=== PATIENT | male | born 1955 | race Caucasian/White ===

== ENCOUNTER 2022-04-15 10:49 | Emergency (ER) | payer OTHER ==
[2022-04-15] MEDS ORDERED: GABAPENTIN 300 MG CAP ONE (11:15)
[2022-04-15] MEDS ORDERED: MORPHINE 4 MG/ML SYR ONE (11:15)
[2022-04-15] MEDS ORDERED: NA CHLORIDE 0.9% 1,000 ML ONE (11:28)
[2022-04-15 11:39] LABS: Absolute Lymphocytes (CBC) 1.8 K/uL (0.7-4.9); Hematocrit 48.4 % (39.6-49.0); Lymphocytes % 28.4 % (15.3-44.8); MPV 9.6 fL (7.6-11.3); RBC Red Blood Cell Count 4.97 M/uL (4.33-5.43)
[2022-04-15 11:48] LABS: Protime INR 1.06
[2022-04-15 11:52] LABS: Potassium 3.4 mmol/L (3.5-5.1)
--- NOTE | 2022-04-15 12:00 | ER ---
Nurse's Notes [facility] Name: Solo Barreto Age: 67 yrs Sex: Male : 1955 Arrival Date: 04/15/2022 Time: 10:51 Bed 24 Private MD: Diagnosis: Atherosclerosis of [place] arteries of extremities with intermittent claudication, left leg Presentation: 04/15 11:01 Chief complaint: Patient states: Left leg pain x 1 week, out of home medication of jl7 gabapentin and Xarelto x 1 week, denies N/V/D, denies CP, denies fever. Coronavirus screen: At this time, the client does not indicate any symptoms associated with coronavirus-19. Ebola Screen: No symptoms or risks identified at this time. Initial Sepsis Screen: Does the patient meet any 2 criteria? No. Patient's initial sepsis screen is negative. Does the patient have a suspected source of infection? No. Patient's initial sepsis screen is negative. Risk Assessment: Do you want to hurt yourself or someone else? Patient reports no desire to harm self or others. Onset of symptoms was April 08, 2022. Care prior to arrival: Glucose check: 101. 11:01 Method Of Arrival: EMS: [facility] 11:01 Acuity: NIKOLAI 3 jl7 Triage Assessment: 11:04 General: Appears in no apparent distress. uncomfortable, Behavior is cooperative, jl7 anxious, fussy. Pain: Complains of pain in left foot Pain radiates to left knee Pain currently is 8 out of 10 on a pain scale. Pain began x 1 week Is continuous. Neuro: Sandoval Agitation-Sedation Scale (RASS): +1 Restless Level of Consciousness is awake, alert, obeys commands, Oriented to person, place, time, situation. Cardiovascular: Patient's skin is warm and dry. Rhythm is sinus bradycardia Chest pain is denied. Respiratory: Airway is patent Respiratory effort is even, unlabored, Respiratory pattern is regular, symmetrical, Denies shortness of breath. GI: Patient currently denies diarrhea, nausea, vomiting. : No signs and/or symptoms were reported regarding the genitourinary system. Derm: Skin is pink, warm \T\ dry. Historical: - Allergies: 11:04 Codeine; jl7 - Home Meds: 11:04 gabapentin 300 mg oral cap 1 cap 3 times per day [Active]; Xarelto oral [Active]; jl7 - PMHx: 11:04 Peripheral artery disease; Hypertensive disorder; Myocardial infarction; jl7 - Immunization history:: Client reports having NOT received the Covid vaccine. - Social history:: Smoking status: Patient reports the use of cigarette tobacco products, smokes one pack cigarettes per day. - Family history:: not pertinent. - Hospitalizations: : No recent hospitalization is reported. Screenin:49 Abuse screen: Denies threats or abuse. Denies injuries from another. Nutritional jl7 screening: No deficits noted. Tuberculosis screening: No symptoms or risk factors identified. Fall Risk IV access (20 points). Total Merchant Fall Scale indicates No Risk (0-24 pts). Assessment: 11:00 General: See triage assessment. jl7 11:20 Reassessment: US at bedside. jl7 12:30 Reassessment: Patient appears in no apparent distress at this time. Patient and/or jl7 family updated on plan of care and expected duration. Pain level reassessed. Patient is alert, oriented x 3, equal unlabored respirations, skin warm/dry/pink. Patient states feeling better. Vital Signs: 11:01 BP 101 / 77; Pulse 68; Resp 15; Temp 98.1; Pulse Ox 96% on R/A; Weight 65.77 kg; Height jl7 5 ft. 4 in. (162.56 cm); Pain 8/10; 11:49 BP 100 / 74; Pulse 52; Resp 15; Pulse Ox 96% ; jl7 12:30 BP 105 / 74; Pulse 53; Resp 15; Pulse Ox 97% ; jl7 11:01 Body Mass Index 24.89 (65.77 kg, 162.56 cm) jl7 ED Course: 10:51 Patient arrived in ED. rn 10:51 Gaetano Addison MD is Attending Physician. rn 11:00 Atiya Melendrez RN is Primary Nurse. jl7 11:00 Patient has correct armband on for positive identification. Placed in gown. Bed in low jl7 position. Call light in reach. Side rails up X2. Client placed on continuous cardiac and pulse oximetry monitoring. NIBP monitoring applied. Warm blanket given. 11:03 Triage completed. jl7 11:04 Arm band placed on right wrist. jl7 11:15 Lower Extremity Artery Uni Ltd US In Process Unspecified. EDMS 11:30 Initial lab(s) drawn, by me, sent to lab. Inserted saline lock: 20 gauge in right jl7 antecubital area, using aseptic technique. Blood collected. 12:41 No provider procedures requiring assistance completed. IV discontinued, intact, jl7 bleeding controlled, No redness/swelling at site. Pressure dressing applied. Administered Medications: 11:21 CANCELLED (Duplicate Order): Lyrica (pregabalin) 100 mg PO once rn 11:30 Drug: Gabapentin 300 mg Route: PO; jl7 12:30 Follow up: Response: No adverse reaction; Pain is decreased jl7 11:30 Drug: NS 0.9% 1000 ml Route: IV; Rate: 1000 ml; Site: right antecubital; jl7 12:30 Follow up: Response: No adverse reaction; IV Status: Completed infusion; IV Intake: jl7 300ml 11:54 Not Given (Duplicate Order): morphine 4 mg IVP once over 4 mins rn 12:39 Not Given (Other Intervention Used): fentaNYL (PF) 25 mcg IVP once jl7 Medication: 12:30 VIS not applicable for this client. jl7 Intake: 12:30 IV: 300ml; Total: 300ml. jl7 Outcome: 12:00 Discharge ordered by . rn 12:41 Discharged to home ambulatory. jl7 12:41 Condition: stable 12:41 Discharge instructions given to patient, Instructed on discharge instructions, follow up and referral plans. medication usage, Demonstrated understanding of instructions, follow-up care, medications, Prescriptions given X 2. 12:47 Patient left the ED. jl7 Signatures: Dispatcher [employer] EDKY Gaetano Addison MD MD rn Leal, Jahala, RN RN jl7
--- NOTE | 2022-04-15 12:00 | EDPHYS ---
Physician Documentation [facility] Name: Solo Barreto Age: 67 yrs Sex: Male : 1955 Arrival Date: 04/15/2022 Time: 10:51 Bed 24 Private MD: ED Physician Gaetano Addison HPI: 04/15 11:48 This 67 yrs old Male presents to ER via EMS with complaints of Leg Pain. rn 11:48 The patient presents with pain, that is chronic. The complaints affect the anterior rn aspect of left ankle and dorsum of left foot. Onset: The symptoms/episode began/occurred "years ago". Modifying factors: The symptoms are alleviated by nothing. the symptoms are aggravated by movement. Associated signs and symptoms: Pertinent negatives fever, rash, swelling, weakness. Severity of symptoms: At their worst the symptoms were moderate, in the emergency department the symptoms are unchanged. The patient has experienced similar episodes in the past. Reports known PAD, bypass > 10 years ago, reports ran out of pain meds/xarelto/gabapentin recently and now having increased leg pain. No trauma. NO rash. . Historical: - Allergies: 11:04 Codeine; jl7 - Home Meds: 11:04 gabapentin 300 mg oral cap 1 cap 3 times per day [Active]; Xarelto oral [Active]; jl7 - PMHx: 11:04 Peripheral artery disease; Hypertensive disorder; Myocardial infarction; jl7 - Immunization history:: Client reports having NOT received the Covid vaccine. - Social history:: Smoking status: Patient reports the use of cigarette tobacco products, smokes one pack cigarettes per day. - Family history:: not pertinent. - Hospitalizations: : No recent hospitalization is reported. ROS: 11:48 Constitutional: Negative for fever, chills, and weight loss, Eyes: Negative for injury, rn pain, redness, and discharge, Cardiovascular: Negative for chest pain, palpitations, and edema, Respiratory: Negative for shortness of breath, cough, wheezing, and pleuritic chest pain, Abdomen/GI: Negative for abdominal pain, nausea, vomiting, diarrhea, and constipation, MS/Extremity: + left leg pain Skin: Negative for injury, rash, and discoloration, Neuro: Negative for headache, weakness, numbness, tingling, and seizure. Exam: 11:48 Constitutional: This is a well developed, well nourished patient who is awake, alert, rn and in no acute distress. Cardiovascular: Regular rate and rhythm. No pulse deficits. Respiratory: No increased work of breathing, no retractions or nasal flaring. Abdomen/GI: Soft, non-tender Skin: Warm, dry with normal turgor. Normal color with no rashes, no lesions, and no evidence of cellulitis. MS/ Extremity: Diminished pulse left foot but present, no cyanosis Neuro: Awake and alert, GCS 15, oriented to person, place, time, and situation. Cranial nerves II-XII grossly intact. Motor strength 5/5 in all extremities. Sensory grossly intact. Cerebellar exam normal. Normal gait. Vital Signs: 11:01 BP 101 / 77; Pulse 68; Resp 15; Temp 98.1; Pulse Ox 96% on R/A; Weight 65.77 kg; Height jl7 5 ft. 4 in. (162.56 cm); Pain 8/10; 11:49 BP 100 / 74; Pulse 52; Resp 15; Pulse Ox 96% ; jl7 12:30 BP 105 / 74; Pulse 53; Resp 15; Pulse Ox 97% ; jl7 11:01 Body Mass Index 24.89 (65.77 kg, 162.56 cm) jl7 MDM: 10:51 Patient medically screened. rn 11:57 Differential diagnosis: PAD, arterial occlusion, rest pain, claudication. Data rn reviewed: vital signs, nurses notes, lab test result(s), radiologic studies, ultrasound, and as a result, I will discharge patient. Counseling: I had a detailed discussion with the patient and/or guardian regarding: the historical points, exam findings, and any diagnostic results supporting the discharge/admit diagnosis, lab results, radiology results, the need for outpatient follow up, to return to the emergency department if symptoms worsen or persist or if there are any questions or concerns that arise at home. Response to treatment: the patient's symptoms have mildly improved after treatment, and as a result, I will discharge patient. Special discussion: I discussed with the patient/guardian in detail that at this point there is no indication for admission to the hospital. It is understood, however, that if the symptoms persist or worsen the patient needs to return immediately for re-evaluation. 11:57 ED course: U/S tech states blood flow, monophasic but present, no occlusion. Will rn refill meds and dc home with return precautions.. 04/15 10:52 Order name: CBC with Diff; Complete Time: 11:59 rn 04/15 10:52 Order name: Basic Metabolic Panel; Complete Time: 11:59 rn 04/15 10:52 Order name: Protime (+inr); Complete Time: 11:59 rn 04/15 10:52 Order name: Ptt, Activated; Complete Time: 11:59 rn 04/15 10:52 Order name: Lower Extremity Artery Uni Ltd US; Complete Time: 12:28 rn 04/15 10:52 Order name: IV Start; Complete Time: 11:38 rn Administered Medications: 11:21 CANCELLED (Duplicate Order): Lyrica (pregabalin) 100 mg PO once rn 11:30 Drug: Gabapentin 300 mg Route: PO; jl7 12:30 Follow up: Response: No adverse reaction; Pain is decreased jl7 11:30 Drug: NS 0.9% 1000 ml Route: IV; Rate: 1000 ml; Site: right antecubital; jl7 12:30 Follow up: Response: No adverse reaction; IV Status: Completed infusion; IV Intake: jl7 300ml 11:54 Not Given (Duplicate Order): morphine 4 mg IVP once over 4 mins rn 12:39 Not Given (Other Intervention Used): fentaNYL (PF) 25 mcg IVP once jl7 Disposition Summary: 04/15/22 12:00 Discharge Ordered Location: Home rn Problem: chronic rn Symptoms: have improved rn Condition: Stable rn Diagnosis - Atherosclerosis of [place] arteries of extremities with intermittent claudication, rn left leg Followup: rn - With: Private Physician - When: As needed - Reason: Recheck today's complaints, Re-evaluation by your physician Discharge Instructions: - Discharge Summary Sheet rn - Intermittent Claudication rn - Peripheral Vascular Disease rn Forms: - Medication Reconciliation Form rn - Thank You Letter rn - Antibiotic internet specialist - Prescription Opioid Use rn Prescriptions: - gabapentin 300 mg Oral capsule - take 1 capsule by ORAL route 3 times per day; 90 capsule; Refills: 0, Product rn Selection Permitted - Xarelto 20 mg Oral Tablet - take 1 tablet by ORAL route once daily; 60 tablet; Refills: 0, Product rn Selection Permitted - Tramadol 50 mg Oral Tablet - take 1 tablet by ORAL route every 8 hours as needed; 12 tablet; Refills: 0, rn Product Selection Permitted Signatures: Dispatcher [employer] Gaetano Lieberman MD MD rn Leal, Jahala, RN RN jl7 Corrections: (The following items were deleted from the chart) 11:21 10:52 Lyrica (pregabalin) 100 mg PO once ordered. rn rn 11:54 11:48 Constitutional: This is a well developed, well nourished patient who is awake, rn alert, and in no acute distress. Cardiovascular: Regular rate and rhythm. No pulse deficits. Respiratory: No increased work of breathing, no retractions or nasal flaring. Abdomen/GI: Soft, non-tender Skin: Warm, dry with normal turgor. Normal color with no rashes, no lesions, and no evidence of cellulitis. MS/ Extremity: Diminished Neuro: Awake and alert, GCS 15, oriented to person, place, time, and situation. Cranial nerves II-XII grossly intact. Motor strength 5/5 in all extremities. Sensory grossly intact. Cerebellar exam normal. Normal gait. rn
--- NOTE | 2022-04-15 12:27 | RAD REPORT ---
EXAM DESCRIPTION: US - Lower Extremity Artery Uni Ltd - 04/15/2022 12:11 pm CLINICAL HISTORY: known PAD COMPARISON: No comparisons TECHNIQUE: Doppler evaluation of the lower left leg arterial tree performed. Waveforms and velocity values were obtained along with visual inspection. FINDINGS: Calcified atherosclerotic changes are present along the jeffries of the left common femoral a rtery without occlusion or significant luminal narrowing seen. A triphasic waveform pattern is presen t. Plaquing changes are much less pronounced in the superficial femoral and popliteal arteries. Bipha sic waveform pattern seen in these 2 vessels. Left posterior tibial artery waveform pattern was bipha sic with the dorsalis pedis artery monophasic. Velocity value shows expected tapering along the lengt h of the left lower extremity. IMPRESSION: Left lower extremity peripheral arterial disease is present most prominently in the comm on femoral artery. No occlusion or focal flow restricting lesion identifiable. The common femoral calcified atherosclero tic changes do not significantly narrow the vessel lumen.
[2022-04-15 13:32] VITALS: TEMP 98.1
[2022-04-15 13:37] VITALS: BP 105/74; O2SAT 97
== END 2022-04-15 12:47 | disposition home or self-care (01) ==
LOC: ER 10:49
DX: I70.212 Atherosclerosis of native arteries of extremities with intermittent claudication, left leg (principal); I10 Essential (primary) hypertension; I25.2 Old myocardial infarction; F17.210 Nicotine dependence, cigarettes, uncomplicated; Z88.5 Allergy status to narcotic agent
CPT/HCPCS: 85025; 80048; 36415; 85610; 85730; 93926; J7030